=== PATIENT | male | born 1985 | race African-American/Black ===

== ENCOUNTER 2020-01-23 22:00 | Emergency (ER) | payer OTHER ==
[2020-01-23 22:07] VITALS: BP 141/91
[2020-01-23] MEDS ORDERED: CLINDAMYCIN HCL 150 MG CAPSULE PO ONE (22:20)
[2020-01-23] MEDS ORDERED: KETOROLAC TROMETHAMINE 60 MG/2 ML SDV IM ONE (22:20)
--- NOTE | 2020-01-23 22:27 | ER Document Report ---
HPI - HPI Patient complains to provider of: dental pain Time Seen by Provider: 01/23/20 22:14 Pain Level: 4 Context: 34-year-old male presents to the emergency room complaining of worsening dental pain that started this evening. States he has had dental pain for several months. States he has not seen a dentist as he does not have dental insurance. States that he has multiple fractured teeth. States he took 4 aspirin and 4 Tylenol today without relief. Able to eat and drink without difficulty. States pain is worse with chewing. Denies being on blood thinners. Associated Symptoms: None Exacerbated by: Denies Relieved by: Denies Similar symptoms previously: No Recently seen / treated by doctor: No - ROS Systems Reviewed and Negative: Yes All other systems reviewed and negative - EENT Notes: Dental pain - NEURO Neurology: DENIES: Headache Past Medical History - General Information source: Patient - Social History Smoking Status: Current Every Day Smoker Frequency of alcohol use: None Drug Abuse: None Family History: Reviewed & Not Pertinent Patient has homicidal ideation: No Vertical Provider Document - CONSTITUTIONAL Agree With Documented VS: Yes Exam Limitations: No Limitations General Appearance: Mild Distress - INFECTION CONTROL TRAVEL OUTSIDE OF THE [place] IN LAST 30 DAYS: No - HEENT HEENT: Normocephalic. negative: Pharyngeal Exudate, Pharyngeal Tenderness, Pharyngeal Erythema, Tympanic Membrane Red, Tympanic Membrane Bulging Notes: Widespread dental decay, gingivitis, multiple fractured teeth. Left upper gumline erythematous, tender, nonfluctuant abscesses palpated along teeth 11-14 there is a fractured tooth #11 and 12. - NECK Neck: Normal Inspection, Supple, Thyroid Normal. negative: Lymphadenopathy- Left, Lymphadenopathy-Right - RESPIRATORY Respiratory: Breath Sounds Normal, No Respiratory Distress, Chest Non-Tender - CARDIOVASCULAR Cardiovascular: Regular Rate, Regular Rhythm, No Murmur - MUSCULOSKELETAL/EXTREMETIES Musculoskeletal/Extremeties: FROM - NEURO Level of Consciousness: Awake, Alert, Appropriate Motor/Sensory: No Motor Deficit, No Sensory Deficit - DERM Integumentary: Warm, Dry Course - Re-evaluation Re-evalutation: 01/23/20 22:22 Patient with widespread dental decay and gingivitis and multiple fractured teeth. Patient will be given IM Toradol and p.o. clindamycin prior to discharge. He was counseled on the importance of outpatient follow-up with a dentist as soon as possible. Will be given information for the dental clinic. Take clindamycin as prescribed. Can take Tylenol and or Motrin as needed for pain. Patient was given strict return to the emergency room guidelines. Return for any new or worsening symptoms. All questions were answered. Patient verbalized understanding and agrees with plan of care. 01/23/20 22:24 - Vital Signs Vital signs: Temp Pulse Resp BP Pulse Ox 97.7 F 68 16 141/91 H 97 01/23/20 22:06 01/23/20 22:06 01/23/20 22:06 01/23/20 22:06 01/23/20 22:06 Discharge - Discharge Clinical Impression: Chronic dental pain, Dental abscess Condition: Stable Disposition: HOME, SELF-CARE Instructions: Clindamycin ([facility]), Dental Infection or Abscess ([facility]), Toothache ([facility]) Additional Instructions: Tylenol and or Motrin as needed for pain. Antibiotics as prescribed. Outpatient follow-up with a dentist as soon as possible. Return to the emergency room for any new or worsening symptoms. Prescriptions: Clindamycin HCl 300 mg PO QID #40 capsule Referrals: [facility] [Provider Group] - Follow up as needed
== END 2020-01-23 22:30 | disposition home or self-care (01) ==
LOC: ER 22:00
DX: K04.7 Periapical abscess without sinus (principal); K08.89 Other specified disorders of teeth and supporting structures; G89.29 Other chronic pain; Z79.899 Other long term (current) drug therapy; F17.200 Nicotine dependence, unspecified, uncomplicated
CPT/HCPCS: 99285; 96361; 96374; J1885